=== PATIENT | male | born 1960 | race Caucasian/White ===

== ENCOUNTER 2018-06-03 15:49 | Inpatient (IN) | payer MEDICARE, MEDICAID ==
[~2018-06-03] VITALS: Ht 160 cm; Wt 60.3 kg
[~2018-06-03 15:49] MED LIST: AMLO2.5T45 PO; DULO60CA44 PO; FAMO20TA8 PO; HYDR100T26 PO; MELA3TAB PO; MELA5TAB3 PO; MULT-1146 PO; MULT-188 PO
[2018-06-03 16:30] VITALS: BP 123/83
[2018-06-03 20:00] VITALS: BP 128/88
[2018-06-04] VITALS: BP 130/80
[2018-06-04] MEDS ORDERED: KETOROLAC 15MG/ML VIAL IV PRN (01:15)
[2018-06-04] MEDS ORDERED: ONDANSETRON HCL 4MG/2ML INJ IV PRN (01:15)
[2018-06-04] MEDS ORDERED: LORAZEPAM 2MG/ML CPJ IV PRN (01:15)
[2018-06-04] MEDS: FOLIC ACID 1 MG, THIAMINE HCL 100 MG, MVI, ADULT NO.1 10 ML in DEXTROSE 5% WATER 1,000 ML IV SCH ×8 (03:12→17:18)
[2018-06-04 04:00] VITALS: BP 134/84
[2018-06-04 06:33] LABS: BASOPHILS % 1.1 % (0.0-2.0); EOSINOPHILS % 2.8 % (0.0-5.0); HEMATOCRIT. 37.9 % (42.0-52.0); HEMOGLOBIN. 13.4 g/dL (14.0-18.0); MEAN CORPUSCULAR VOLUME 90.7 fL (80.0-94.0); MEAN PLATELET VOLUME 7.3 fl (7.4-10.4); MONOCYTES % 11.6 % (2.0-8.0); NEUTROPHILS % 68.5 % (40.0-76.0); PLATELET 353 x1000/uL (130-400); RED BLOOD CELL COUNT 4.18 mill/uL (4.7-6.1); RED CELL DISTRIBUTION WIDTH 14.9 % (11.6-14.6)
[2018-06-04 06:37] LABS: PARTIAL THROMBOPLASTIN TIME 32.9 sec (23.4-31.0); PROTHROMBIN TIME 10.5 sec (9.6-11.0)
[2018-06-04 06:57] LABS: CHLORIDE 111 mEq/L (98-107)
[2018-06-04 07:14] LABS: PHOSPHORUS 2.8 mg/dL (2.5-4.9)
[2018-06-04 07:15] LABS: LDL CHOLESTEROL 78 mg/dL (5-100)
[2018-06-04 07:17] LABS: HDL CHOLESTEROL 45 mg/dL (40-59)
[2018-06-04 07:20] LABS: T4 FREE 1.36 ng/dL (0.76-1.46); TOTAL IRON BINDING CAPACITY 212 ug/dL (250-450)
[2018-06-04 08:00] VITALS: BP 101/73
[2018-06-04 09:12] LABS: CLARITY URINE TURBID (CLEAR); COLOR URINE YELLOW (YELLOW); KETONES URINE NEGATIVE (NEGATIVE); LEUKOCYTE ESTERASE URINE 3+ (NEGATIVE); NITRITE URINE NEGATIVE (NEGATIVE); OCCULT BLOOD URINE 2+ (NEGATIVE); PROTEIN URINE 2+ (NEGATIVE); SPECIFIC GRAVITY URINE 1.012 (1.005-1.030); UROBILINOGEN URINE 0.2 E.U./dL (0.2-1.0)
[2018-06-04] MEDS: PANTOPRAZOLE SODIUM 40 MG/VIAL IV SCH (09:57)
[2018-06-04 12:00] VITALS: BP 111/76
[2018-06-04 16:00] VITALS: BP 128/73
[2018-06-04] MEDS: DEXT 5%/0.45% NACL KCL 20MEQ/L 1,000 ML IV SCH (17:18)
[2018-06-05] MEDS: DULOXETINE HCL 60MG DR CAPSULE PO SCH ×2 (00:07→20:09)
[2018-06-05] MEDS: LORAZEPAM 1MG TABLET PO PRN (05:22)
[2018-06-05] MEDS: FOLIC ACID 1 MG, THIAMINE HCL 100 MG, MVI, ADULT NO.1 10 ML in DEXTROSE 5% WATER 1,000 ML IV SCH ×8 (07:36→21:54)
[2018-06-05] MEDS: DEXT 5%/0.45% NACL KCL 20MEQ/L 1,000 ML IV SCH ×2 (07:36→21:54)
[2018-06-05 08:00] VITALS: BP 127/87
[2018-06-05] MEDS: PANTOPRAZOLE SODIUM 40 MG/VIAL IV SCH (09:00)
[2018-06-05 12:00] VITALS: BP 131/81
[2018-06-05 16:00] VITALS: BP 146/92
[2018-06-05] MEDS: FAMOTIDINE 20MG/2ML VIAL IV SCH (21:00)
[2018-06-06] MEDS: LORAZEPAM 1MG TABLET PO PRN (00:59)
[2018-06-06 08:00] VITALS: BP 155/82
[2018-06-06] MEDS: FAMOTIDINE 20MG/2ML VIAL IV SCH ×2 (08:44→20:04)
[2018-06-06] MEDS: FAMOTIDINE 20MG TABLET PO SCH ×2 (08:44→20:26)
[2018-06-06 12:00] VITALS: BP 159/81
[2018-06-06 18:21] VITALS: BP 145/87
[2018-06-06 20:00] VITALS: BP 135/77
[2018-06-06] MEDS: DULOXETINE HCL 60MG DR CAPSULE PO SCH (20:26)
[2018-06-08 19:06] LABS: 25-HYDROXY VITAMIN D3 28 ng/mL (.)
== END 2018-06-06 21:41 | DRG 70 ==
LOC: 6EST 15:49
PROVIDERS: ADMIT Internal Medicine; ATTEND Internal Medicine
DX: G93.40 Encephalopathy, unspecified (principal); E43 Unspecified severe protein-calorie malnutrition; N39.0 Urinary tract infection, site not specified; J44.9 Chronic obstructive pulmonary disease, unspecified; G35 Multiple sclerosis; R13.10 Dysphagia, unspecified; I10 Essential (primary) hypertension; E86.0 Dehydration; G89.29 Other chronic pain; G47.9 Sleep disorder, unspecified; R62.7 Adult failure to thrive; B96.4 Proteus (mirabilis) (morganii) as the cause of diseases classified elsewhere; Z74.01 Bed confinement status; Z87.81 Personal history of (healed) traumatic fracture
CPT/HCPCS: 36415; 71045; 80061; 82306; 83036; 83540; 83550; 83735; 84100; 84439; 84443; 84450; 84460; 84481; 84550; 85651; 87077; 87186; 92610; 93005; 93970; C9113; J2060; J3411; J3490; J7070; A4315

== ENCOUNTER 2018-10-07 18:28 | Inpatient (IN) | payer MEDICARE, MEDICAID ==
[~2018-10-07] VITALS: Ht 165.1 cm; Wt 38.6 kg
[2018-10-07 20:00] VITALS: BP_SYST 112; BP_SYST 90; BP_DIAS 56; BP_DIAS 63
[2018-10-07] MEDS ORDERED: HYDRALAZINE 20MG/ML VIAL IV PRN (20:15)
[2018-10-07] MEDS ORDERED: ONDANSETRON HCL 4MG/2ML INJ IV PRN (20:15)
[2018-10-07] MEDS ORDERED: PANTOPRAZOLE SODIUM 40 MG/VIAL IV SCH (22:30)
[2018-10-08] VITALS: BP 95/70
[2018-10-08] MEDS: DEXT 5%/0.45% NACL KCL 20MEQ/L 1,000 ML IV SCH (00:05)
[2018-10-08] MEDS: MVI, ADULT NO.1 10 ML, POTASSIUM CHLORIDE INJ 20 MEQ in DEXT 5%/0.45% NACL 1000ML 1,000 ML IV SCH ×3 (02:20)
[2018-10-08 04:00] VITALS: BP 96/52
[2018-10-08] MEDS ORDERED: SENN-170 MT (05:55)
[2018-10-08] MEDS ORDERED: HYDRALAZINE 10 MG in SODIUM CHLORIDE 0.9% 49.5 ML IV PRN (06:30)
[2018-10-08 07:59] LABS: PARTIAL THROMBOPLASTIN TIME 34.1 sec (23.4-31.0); PROTHROMBIN TIME 10.3 sec (9.6-11.0)
[2018-10-08 08:00] VITALS: BP 92/60
[2018-10-08 08:19] LABS: HEMOGLOBIN. 10.9 g/dL (14.0-18.0); MEAN CORPUSCULAR VOLUME 90.9 fL (80.0-94.0); MEAN PLATELET VOLUME 7.4 fl (7.4-10.4); PLATELET 606 x1000/uL (130-400); RED BLOOD CELL COUNT 3.63 mill/uL (4.7-6.1); RED CELL DISTRIBUTION WIDTH 18.5 % (11.6-14.6)
[2018-10-08 09:42] LABS: CHLORIDE 116 mEq/L (98-107)
[2018-10-08 09:53] LABS: PHOSPHORUS 4.8 mg/dL (2.5-4.9)
[2018-10-08 10:00] LABS: TOTAL IRON BINDING CAPACITY 139 ug/dL (250-450)
[2018-10-08 11:20] LABS: VITAMIN B12 SERUM > 2000.0 pg/mL (211-911)
[2018-10-08 12:00] VITALS: BP 99/61
[2018-10-08 16:00] VITALS: BP 97/64
[2018-10-08 17:27] LABS: PLATELET ESTIMATE INCREASED
[2018-10-08 20:00] VITALS: BP 98/61
[2018-10-08] MEDS: PANTOPRAZOLE SODIUM 40 MG/VIAL IV SCH (21:00)
[2018-10-09] VITALS: BP 96/59
[2018-10-09] MEDS: MVI, ADULT NO.1 10 ML, POTASSIUM CHLORIDE INJ 20 MEQ in DEXT 5%/0.45% NACL 1000ML 1,000 ML IV SCH ×3 (00:18)
[2018-10-09 01:06] LABS: CLARITY URINE CLOUDY (CLEAR); COLOR URINE YELLOW (YELLOW); KETONES URINE NEGATIVE (NEGATIVE); LEUKOCYTE ESTERASE URINE 3+ (NEGATIVE); NITRITE URINE NEGATIVE (NEGATIVE); OCCULT BLOOD URINE NEGATIVE (NEGATIVE); PH URINE 6.5 (4.5-8.0); PROTEIN URINE 1+ (NEGATIVE); SPECIFIC GRAVITY URINE 1.015 (1.005-1.030); UROBILINOGEN URINE 0.2 E.U./dL (0.2-1.0)
[2018-10-09 04:00] VITALS: BP 94/60
[2018-10-09] MEDS: DEXT 5%/0.45% NACL KCL 20MEQ/L 1,000 ML IV SCH ×2 (04:21→18:36)
[2018-10-09 08:00] VITALS: BP 106/56
[2018-10-09] MEDS ORDERED: CEFAZOLIN 1000MG PREMIX 50 ML IV SCH ×2 (08:00→18:00)
[2018-10-09] MEDS ORDERED: BACTERIOSTATIC SODIUM CHLORIDE 0.9% 30ML VIAL IJ ONE (08:05)
[2018-10-09] MEDS: PANTOPRAZOLE SODIUM 40 MG/VIAL IV SCH (08:53)
[2018-10-09 09:47] LABS: HEMATOCRIT. 38.5 % (42.0-52.0); HEMOGLOBIN. 12.6 g/dL (14.0-18.0); MEAN CORPUSCULAR HEMOGLOBIN 29.9 pg (28.0-32.0); MEAN CORPUSCULAR VOLUME 91.4 fL (80.0-94.0); MEAN PLATELET VOLUME 7.2 fl (7.4-10.4); PLATELET 620 x1000/uL (130-400); RED BLOOD CELL COUNT 4.22 mill/uL (4.7-6.1); RED CELL DISTRIBUTION WIDTH 18.6 % (11.6-14.6)
[2018-10-09 10:15] LABS: CHLORIDE 120 mEq/L (98-107)
[2018-10-09 10:50] LABS: PLATELET ESTIMATE INCREASED
[2018-10-09 11:57] VITALS: BP 91/40
[2018-10-09] MEDS ORDERED: MIDAZOLAM HCL 5 MG/5 ML VIAL ONE (14:12)
[2018-10-09] MEDS ORDERED: FENTANYL CITRATE/PF 50MCG/ML 2ML VIAL ONE (14:12)
[2018-10-09] MEDS ORDERED: MIDAZOLAM HCL 5 MG/5 ML VIAL IV PRN (14:20)
[2018-10-09 20:00] VITALS: BP 93/68
[2018-10-09] MEDS ORDERED: CEFAZOLIN SODIUM 1000MG/VIAL IV SCH (22:00)
[2018-10-09] MEDS: CEFAZOLIN 1000MG PREMIX 50 ML IV SCH (22:11)
[2018-10-10] VITALS: BP 96/69
[2018-10-10] MEDS: MVI, ADULT NO.1 10 ML, POTASSIUM CHLORIDE INJ 20 MEQ in DEXT 5%/0.45% NACL 1000ML 1,000 ML IV SCH ×3 (02:44)
[2018-10-10 04:00] VITALS: BP 144/90
[2018-10-10 05:51] LABS: HEMATOCRIT. 37.5 % (42.0-52.0); HEMOGLOBIN. 12.1 g/dL (14.0-18.0); MEAN CORPUSCULAR HEMOGLOBIN 29.8 pg (28.0-32.0); MEAN CORPUSCULAR VOLUME 92.1 fL (80.0-94.0); MEAN PLATELET VOLUME 7.8 fl (7.4-10.4); PLATELET 365 x1000/uL (130-400); RED BLOOD CELL COUNT 4.07 mill/uL (4.7-6.1); RED CELL DISTRIBUTION WIDTH 19.1 % (11.6-14.6)
[2018-10-10] MEDS: CEFAZOLIN 1000MG PREMIX 50 ML IV SCH ×3 (06:42→22:17)
[2018-10-10 07:46] LABS: PHOSPHORUS 4.1 mg/dL (2.5-4.9)
[2018-10-10 08:00] VITALS: BP 101/59
[2018-10-10 08:20] LABS: PLATELET ESTIMATE NORMAL
[2018-10-10] MEDS: DEXT 5%/0.45% NACL KCL 20MEQ/L 1,000 ML IV SCH (08:58)
[2018-10-10] MEDS: MUPIROCIN 2% OINT 22GM TOP SCH ×2 (08:58→17:22)
[2018-10-10] MEDS: MUPIROCIN 2% OINT 22GM NS SCH ×2 (08:58→17:22)
[2018-10-10 12:00] VITALS: BP 95/63
[2018-10-10] MEDS: DOCUSATE SODIUM SUGAR FREE 100MG/10ML UDC GT SCH (15:00)
[2018-10-10 15:07] LABS: FERRITIN 383 ng/mL (22-322)
[2018-10-10 16:00] VITALS: BP 82/51
[2018-10-10 20:00] VITALS: BP 87/50
[2018-10-11] VITALS: BP 103/51
[2018-10-11 04:00] VITALS: BP 103/51
[2018-10-11] MEDS: DEXT 5%/0.45% NACL KCL 20MEQ/L 1,000 ML IV SCH (04:20)
[2018-10-11] MEDS: CEFAZOLIN 1000MG PREMIX 50 ML IV SCH ×3 (06:29→22:43)
[2018-10-11] MEDS: MUPIROCIN 2% OINT 22GM TOP SCH ×2 (08:44→16:28)
[2018-10-11] MEDS: MUPIROCIN 2% OINT 22GM NS SCH ×2 (08:45→16:30)
[2018-10-11] MEDS: DOCUSATE SODIUM SUGAR FREE 100MG/10ML UDC GT SCH (09:00)
[2018-10-11 09:58] LABS: HEMATOCRIT. 37.2 % (42.0-52.0); HEMOGLOBIN. 12.1 g/dL (14.0-18.0); MEAN CORPUSCULAR VOLUME 91.8 fL (80.0-94.0); MEAN PLATELET VOLUME 7.8 fl (7.4-10.4); PLATELET 191 x1000/uL (130-400); RED BLOOD CELL COUNT 4.05 mill/uL (4.7-6.1); RED CELL DISTRIBUTION WIDTH 19.2 % (11.6-14.6)
[2018-10-11 10:04] LABS: CHLORIDE 122 mEq/L (98-107)
[2018-10-11 10:10] LABS: PHOSPHORUS 3.4 mg/dL (2.5-4.9)
[2018-10-11] MEDS ORDERED: DEXT 5%/0.45% NACL 1000ML 1,000 ML IV SCH (11:15)
[2018-10-11 12:00] VITALS: BP 80/53
[2018-10-11] MEDS ORDERED: MVI, ADULT NO.1 10 ML in DEXT 5%/0.45% NACL 1000ML 1,000 ML IV SCH ×4 (12:30→14:00)
[2018-10-11] MEDS: DEXT 5%/0.45% NACL 1000ML 1,000 ML IV SCH (12:42)
[2018-10-11 17:58] LABS: CLARITY URINE TURBID (CLEAR); COLOR URINE DARK YELLOW (YELLOW); KETONES URINE TRACE (NEGATIVE); LEUKOCYTE ESTERASE URINE 3+ (NEGATIVE); NITRITE URINE POSITIVE (NEGATIVE); OCCULT BLOOD URINE TRACE (NEGATIVE); PROTEIN URINE 2+ (NEGATIVE); SPECIFIC GRAVITY URINE 1.015 (1.005-1.030); UROBILINOGEN URINE 0.2 E.U./dL (0.2-1.0)
[2018-10-11] MEDS: LACTOBACILLUS GG CAPSULE PO SCH (18:47)
[2018-10-11 19:32] LABS: PLATELET ESTIMATE NORMAL
[2018-10-11 20:00] VITALS: BP 97/60
[2018-10-12] VITALS (12 sets, daily range): BP systolic 45–89; BP diastolic 22–83
[2018-10-12] MEDS: DEXT 5%/0.45% NACL 1000ML 1,000 ML IV SCH (05:10)
[2018-10-12] MEDS: CEFAZOLIN 1000MG PREMIX 50 ML IV SCH ×2 (05:10→12:58)
[2018-10-12] MEDS: DOCUSATE SODIUM SUGAR FREE 100MG/10ML UDC GT SCH (09:00)
[2018-10-12 09:38] LABS: HEMATOCRIT 34.7 % (42.0-52.0); HEMOGLOBIN 11.3 g/dL (14.0-18.0); MEAN CORPUSCULAR HEMOGLOBIN 30.3 pg (28.0-32.0); MEAN CORPUSCULAR VOLUME 92.8 fL (80.0-94.0); PLATELET 117 x1000/uL (130-400); RED BLOOD CELL COUNT 3.74 mill/uL (4.7-6.1); RED CELL DISTRIBUTION WIDTH 19.2 % (11.6-14.6)
[2018-10-12] MEDS: METRONIDAZOLE 500MG TABLET PO SCH ×2 (09:56→17:51)
[2018-10-12] MEDS: LACTOBACILLUS GG CAPSULE PO SCH ×2 (09:57→17:51)
[2018-10-12] MEDS: MUPIROCIN 2% OINT 22GM TOP SCH ×2 (09:58→17:52)
[2018-10-12] MEDS: MUPIROCIN 2% OINT 22GM NS SCH ×2 (09:58→17:52)
[2018-10-12 10:03] LABS: HEMATOCRIT 35.3 % (42.0-52.0); HEMOGLOBIN 11.3 g/dL (14.0-18.0); MEAN CORPUSCULAR HEMOGLOBIN 29.9 pg (28.0-32.0); MEAN CORPUSCULAR VOLUME 93.6 fL (80.0-94.0); PLATELET 119 x1000/uL (130-400); RED BLOOD CELL COUNT 3.78 mill/uL (4.7-6.1); RED CELL DISTRIBUTION WIDTH 18.4 % (11.6-14.6)
[2018-10-12] MEDS ORDERED: VANCOMYCIN HCL 1000 MG/20 ML ORAL PO SCH (17:00)
[2018-10-12] MEDS ORDERED: DEXT 5%/0.9% NACL 1,000 ML IV SCH (21:00)
[2018-10-12] MEDS ORDERED: HYDRALAZINE 20MG/ML VIAL IV PRN (21:30)
[2018-10-12] MEDS ORDERED: MORPHINE SULFATE 250 MG in DEXT 5% WATER 240 ML IV PRN (22:15)
[2018-10-12] MEDS ORDERED: LEVOFLOXACIN 500MG PREMIX 100 ML IV NR (23:00)
[2018-10-13] MEDS ORDERED: LEVOFLOXACIN 250MG PREMIX 50 ML IV SCH (14:00)
== END 2018-10-13 00:50 | disposition expired | DRG 58 ==
LOC: 6EST 18:28 → CVICU 10-12 18:55
PROVIDERS: ADMIT Internal Medicine; ATTEND Internal Medicine
PROC: 0DH63UZ Insertion of Feeding Device into Stomach, Percutaneous Approach (ICD-10-PCS; principal; 2018-10-09)
PROC: 0BH17EZ Insertion of Endotracheal Airway into Trachea, Via Natural or Artificial Opening (ICD-10-PCS; 2018-10-12)
PROC: 5A1935Z Respiratory Ventilation, Less than 24 Consecutive Hours (ICD-10-PCS; 2018-10-12)
DX: G35 Multiple sclerosis (principal); E43 Unspecified severe protein-calorie malnutrition; N39.0 Urinary tract infection, site not specified; Z68.1 Body mass index [BMI] 19.9 or less, adult; G93.49 Other encephalopathy; I10 Essential (primary) hypertension; R13.12 Dysphagia, oropharyngeal phase; R62.7 Adult failure to thrive; D63.8 Anemia in other chronic diseases classified elsewhere; N28.9 Disorder of kidney and ureter, unspecified; E86.0 Dehydration; I95.9 Hypotension, unspecified; Z87.440 Personal history of urinary (tract) infections; Z79.899 Other long term (current) drug therapy; Z51.5 Encounter for palliative care
CPT/HCPCS: 31500; 36415; 71045; 80048; 80069; 80076; 81003; 82248; 82607; 82728; 83540; 83550; 83735; 84100; 84134; 84550; 85027; 85651; 87077; 87186; 93970; 94002; C9113; J0690; J1956; J2250; J3010; J3370; J3480; J3490